=== PATIENT | male | born 2000 | race Caucasian/White ===

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

== ENCOUNTER 2018-05-08 16:19 | Emergency (ER) | payer OTHER ==
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
[2018-05-08 18:42] VITALS: BP 128/72
== END 2018-05-08 18:41 | disposition home or self-care (01) ==
LOC: ED 16:19
DX: S80.212A Abrasion, left knee, initial encounter (principal); S80.211A Abrasion, right knee, initial encounter; S90.512A Abrasion, left ankle, initial encounter; S90.511A Abrasion, right ankle, initial encounter; V19.40XA Pedal cycle driver injured in collision with unspecified motor vehicles in traffic accident, initial encounter; Y93.55 Activity, bike riding; Y92.9 Unspecified place or not applicable
CPT/HCPCS: 99281

== ENCOUNTER 2018-05-10 17:47 | Emergency (ER) | payer OTHER ==
[2018-05-10 17:55] VITALS: BP 110/65
[2018-05-10] MEDS ORDERED: HYDROcodone/ACETAMIN 5-325 MG* 1 TAB PO ONE (18:27)
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
== END 2018-05-10 18:40 | disposition home or self-care (01) ==
LOC: UCEAST 17:47
DX: S93.601A Unspecified sprain of right foot, initial encounter (principal); S93.401A Sprain of unspecified ligament of right ankle, initial encounter; F17.210 Nicotine dependence, cigarettes, uncomplicated; V23.4XXA Motorcycle driver injured in collision with car, pick-up truck or van in traffic accident, initial encounter; Y92.9 Unspecified place or not applicable; Y93.55 Activity, bike riding
CPT/HCPCS: 99213; G0463